=== PATIENT | female | born 1990 | race Two or more races ===

== ENCOUNTER 2019-08-12 12:03 | Emergency (ER) | payer MEDICAID, OTHER ==
[~2019-08-12] VITALS: Ht 160 cm; Wt 122.5 kg
[2019-08-12 13:01] VITALS: BP 136/88
[2019-08-12] MEDS ORDERED: diphenhdrAMINE HCL 50 MG/1 ML VL IM ONE (13:45)
== END 2019-08-12 14:45 | disposition home or self-care (01) ==
LOC: ER 12:03
DX: L50.9 Urticaria, unspecified (principal)
CPT/HCPCS: 96372; 99283; J1200